=== PATIENT | male | born 1955 | race Caucasian/White ===

== ENCOUNTER 2017-01-24 09:37 | Day surgery (SDC) | payer BC ==
--- NOTE | 2017-01-24 10:33 | OR ---
Anesthesia Pre Procedure Eval Pre Procedure Evaluation: Last Vital Signs Temp 36.5 C 01/24/17 09:46 Pulse 88 01/24/17 09:46 Resp 16 01/24/17 09:46 BP 146/92 01/24/17 09:46 Pulse Ox 96 01/24/17 09:46 PRE PROCEDURE EVALUATION:: DATE: 01/24/2017 TIME: 10:30 INDICATIONS: Radicular low back pain. Bulging disc L5-S1. Spinal stenosis L5- S1. PAST MEDICAL HISTORY: Patient states he had cortisone injection in his back about 30 years ago. No recent epidural steroid injections. EXAM: Heart rate regular. Lungs clear. Patient complains of radicular low back pain. Pain is worse in his left hip and left leg. Procedure risks and benefits were explained to and accepted by the patient. ASSESSMENT OF MEDICAL STATUS: No contraindication to epidural injection. PLANNED PROCEDURE : Fluoroscopy guided epidural steroid injection at L5-S1. Home Medications: HOME MEDICATIONS oxyCODONE HCL/ACETAMINOPHEN [Percocet 5 MG/325 MG] 1 tab PO Q6H PRN 01/22/17 [ Last Taken Unknown]
[2017-01-24] MEDS ORDERED: IOPAMIDOL 20 ML VIAL IJ ONE (10:51)
[2017-01-24] MEDS ORDERED: DEXAMETHASONE SOD PHOSPHATE 10 MG/ML VIAL IJ ONE (10:51)
[2017-01-24] MEDS ORDERED: LIDOCAINE HCL/PF 5 ML VIAL IJ ONE (10:51)
--- NOTE | 2017-01-24 11:12 | OR ---
Anesthesia Procedure Note - Anesthesia Procedure Note Narrative: Vital Signs - Last Taken Temp 36.5 C 01/24/17 11:05 Pulse 82 01/24/17 11:05 Resp 16 01/24/17 11:05 BP 144/86 01/24/17 11:05 Pulse Ox 96 01/24/17 11:05 01/24/17 11:09 ANESTHESIA PROCEDURE NOTE Date of Procedure: 01/24/2017 Time of procedure: 1045. Performed by: Rafael Johnson CRNA Tar Roofer: None. Preprocedure diagnosis: Radicular low back pain. Spinal stenosis L5-S1. Bulging disc L5-S1. Post procedure diagnosis: Same. Procedure: Epidural Steroid Injection at L5-S1. Indications: Radicular low back pain. Findings: See below. Details of the procedure: The patient was brought back to operating room #4. The patient was then placed in the prone position. Back was prepped with DuraPrep. Patient was then draped in sterile fashion. Lidocaine 1% was infiltrated to the skin and subcutaneous tissues at the level of the L5-S1 interspace. The epidural space was identified using a 20-gauge Tuohy needle with [id number] technique and fluoroscopic guidance. A total of 3 mL of Isovue-200 contrast dye was injected in first the lateral and AP positions to confirm needle placement. Dexamethasone 10 mg + 5 mL of 1% preservative- free lidocaine was administered to the epidural space after negative aspiration for blood and CSF. The Tuohy needle was removed intact. A Band-Aid was applied to the patient's back. The patient was then placed in a supine position for 5 minutes before returning to the ambulatory surgical unit. Total fluoroscopy time 26.4 seconds. Total dose 13.33 m/gy. EBL: Minimal. Fluids: N/A. Specimen: N/A. Post procedure condition: The patient tolerated the procedure well. No complications were noted. Thank you for this consultation. Rafael Johnson CRNA
[2017-01-24 11:36] VITALS: BP 148/87
== END 2017-01-24 09:38 | disposition home or self-care (01) ==
LOC: AMB 09:37
PROVIDERS: ATTEND Family Medicine
PROC: 3E0S3BZ Introduction of Anesthetic Agent into Epidural Space, Percutaneous Approach (ICD-10-PCS; 2017-01-24)
PROC: 3E0S33Z Introduction of Anti-inflammatory into Epidural Space, Percutaneous Approach (ICD-10-PCS; principal; 2017-01-24 11:30)
DX: M51.27 Other intervertebral disc displacement, lumbosacral region (principal); M48.07 Spinal stenosis, lumbosacral region; Z68.32 Body mass index [BMI] 32.0-32.9, adult

== ENCOUNTER 2018-01-22 06:22 | Inpatient (IN) ==
[~2018-01-22 06:22] MED LIST: ceFAZolin SODIUM 1 GM VIAL IV PRN
--- NOTE | 2018-01-22 07:06 | ANES ---
Anesthesia Pre Procedure Eval Vitals/Labs: Last Vital Signs Temp 36.6 C 01/22/18 06:34 Pulse 86 01/22/18 06:34 Resp 168 H 01/22/18 06:34 BP 168/98 H 01/22/18 06:34 Pulse Ox 95 01/22/18 06:34 HOME MEDICATIONS NK 01/09/18 [Last Taken Unknown] Allergies/Adverse Reactions: Allergies Allergy/AdvReac Type Severity Reaction Status Date / Time No Known Allergies Allergy Verified 01/14/18 14:40 - Planned Procedure Planned Procedure: Left Total Shoulder vs. Left Reverse Total Shoulde Medication List Reviewed:: Yes Allergies Verified: Yes Medical History (Last Reviewed 01/22/18 @ 07:01 by Fran Toro CRNA) Chest pain Onset Date: ~2009 AC (acromioclavicular) arthritis Onset Date: 08/29/17 left Essential hypertension Onset Date: Unknown resolved, periods of hypertension Hemorrhoids Onset Date: Unknown Osteoarthrosis, localized, primary, shoulder region Onset Date: 08/29/17 left Pancreatitis Onset Date: 10/23/09 Dr. Yusuf Rectal bleeding Onset Date: 03/2010 BRB per rectum Restless leg syndrome Onset Date: Unknown TIA (transient ischemic attack) Onset Date: 10/23/09 Dr. Yusuf Surgical History (Last Reviewed 01/22/18 @ 07:02 by Fran Toro CRNA) History of shoulder replacement Right Clavicle fracture Onset Date: Unknown right side History of adenoidectomy Onset Date: Unknown History of carpal tunnel release Onset Date: 06/04/01 Dr. Edgar 04/23/2001 / Dr. John whitaker 06/04/2001 History of colonoscopy Onset Date: 03/23/10 Normal-Tingu[place] History of hemorrhoidectomy Onset Date: Unknown History of laminectomy Onset Date: 05/17/17 Laminectomy/decompression lumbar post, left and right l3 hemilaminectomy &L3- 4 partial facetectomy History of lung biopsy Onset Date: 2001 Benign-Joe History of repair of left rotator cuff Onset Date: Unknown History of repair of right rotator cuff Onset Date: 03/14/06 Dr. Tomlinson History of tonsillectomy Onset Date: Unknown Family History (Last Reviewed 01/22/18 @ 07:02 by Fran Toro CRNA) Mother Alzheimers disease, Onset Age: 80 age 80(2009) beginning Alzheimer's dementia, Cancer colon Father Alive and well Sister Alive and well Daughter Alive and well - Family Anesthesia History Family History:: no untoward family reactions to anesthesia, no familial bleeding tendencies, no family history of clotting disorders, no family history of premature - Airway/Neck/Teeth Within Normal Limits:: Yes Teeth Condition: Missing Teeth, Broken, Irregular Notching Neck Exam: non-tender, full range of motion Mallampatti Score: 2 Thyromental (T-M) distance: > 6 cm Mandibulo Hyoid distance: > 3 cm - Respiratory Respiratory: chest non-tender, lungs clear, decreased breath sounds Smoking Status: Never smoker Sleep Apnea currently treated: No Sleep Apnea by current assessment: No - Cardiovascular Patient History - Cardiac/Respiratory: Hypertension, TIA Tolerates Activity: Fair Heart Sounds: S1 & S2, Regular, Murmur - Anesthesia Assessment and Plan ASA Class: PS, III Anesthesia Type Plan: General LMA
[2018-01-22] MEDS: RINGER'S SOLUTION,LACTATED 1,000 ML IV PRN ×2 (07:09→10:15)
[2018-01-22] MEDS ORDERED: ceFAZolin SODIUM 1 GM VIAL IV PRN (08:46)
[2018-01-22] MEDS ORDERED: MAGNESIUM HYDROXIDE 30 ML UDC PO PRN (10:30)
[2018-01-22] MEDS ORDERED: oxyCODONE HCL/ACETAMINOPHEN 1 TAB TABLET PO PRN ×2 (10:30)
[2018-01-22] MEDS ORDERED: MAG HYDROX/ALUMINUM HYD/SIMETH 30 ML UDC PO PRN (10:30)
[2018-01-22] MEDS ORDERED: ONDANSETRON HCL/PF 2 MG/ML VIAL IV PRN (10:30)
[2018-01-22] MEDS ORDERED: ACETAMINOPHEN 500 MG TABLET PO PRN (10:30)
[2018-01-22] MEDS ORDERED: diphenhydrAMINE HCL 50 MG/ML VIAL IV PRN (10:30)
[2018-01-22] MEDS ORDERED: MORPHINE SULFATE 2 MG/ML DISP.SYRIN IV PRN (10:30)
--- NOTE | 2018-01-22 10:30 | OR ---
Operative Report - Dictated Report Narrative: Date: 01/22/2018 Physician: Lavell Swain M.D. Gis Software Engineer: Shayan Lopez PA-C Preoperative diagnosis: Left glenohumeral osteoarthritis Postoperative diagnosis: Left glenohumeral osteoarthritis Procedure: Left anatomic total shoulder arthroplasty Anesthesia: General plus regional Complications: None Estimated blood loss: 200 mL Specimens: Bone for disposal, cultures swab x1, frozen section x1 Retained implants: Depuy Global Unite size 12 standard stem, Global Unite anatomic proximal body size 12, Global Unite eccentric humeral head 52 mm x 18 mm, Global anchor peg glenoid size 52 mm Drains: None Indications: Kong Is a 62 year-old male who has been followed in my clinic with complaints of shoulder pain consistent with left glenohumeral arthritis. Physical exam and diagnostic imaging were consistent with his complaints and concern for gl enohumeral arthritis. MRI of the shoulder demonstrated a fluid collection of the subacromial space consistent with significant bursitis. There is no clinical concern for infection and I counseled the patient that we would culture this at the time of surgery and go ahead and send frozen sections to ensure there is no active infection. Conservative measures have failed including, but not limited to, passage of time, activity modification, medications, physical therapy/home exercise program, or injections. The risks, benefits, and alternatives were discussed in clinic. The risks being , bleeding, infection, blood clots, nerve, tendon, ligament, blood vessel injury, persistent pain, arthrosis, stiffness, need for prolonged therapy, implant failure/loosening, need for additional procedures, and persistent symptoms. Consent was obtained in the clinic. Procedure: After marking the correct extremity in the preoperative holding area, a timeout was performed in the operating room. IV antibiotics consisting of 2 g of Ancef were administered prior to the procedure. A general followed by regional anesthetic was induced by the nurse cook roast. This was in the supine position, then the patient was transitioned to a beachchair position with all bony prominences well-padded, head in neutral, the nonoperative arm well supported, and the legs padded with SCDs in place. The operative shoulder was then prepped and draped in a standard sterile fashion. Preoperatively the shoulder had slightly limited abduction and external rotation. After marking out the bony landmarks, an approximately 12 cm deltopectoral incision was marked out and incised with a sharp knife. A combination of blunt dissection and electrocautery was carried down through subcutaneous tissue to the level of the deltopectoral fascia. The fascial interval was developed with Metzenbaum scissors identifying the cephalic vein which was protected and retracted medially. Blunt finger dissection was used to develop the deltopectoral interval and the deltoid was retracted laterally while the pectoralis major and cephalic vein were retracted medially. This revealed the conjoined tendon and anterior aspect of the shoulder. We bluntly dissected into the subacromial space but did not encounter the expected fluid collection. It was determined that this fluid collection was within the deltoid muscle belly itself. Sharp knife was used to incise longitudinally into the deltoid between its fibers and immediately a large amount of serous fluid was encountered. This was cultured and the seroma was completely drained. There were no signs of purulence or gross infection. The bicipital groove was identified as well as the lesser tuberosity and we marked out our location for our subscapularis tenotomy. The subscapularis tendon was tagged with Vicryl suture and then sharply divided medial to its insertion point leaving a good cuff of tendon attached to the lesser tuberosity. Our incision was carried up through the rotator cuff interval to the level of the glenoid. The inferior aspect of the subscapularis as well as the inferior capsule was released taking care to protect the axillary nerve. The capsule was then released from the anterior and inferior aspects of the glenoid. At this point the arm was externally rotated and the shoulder dislocated delivering the humeral head up and out of the wound. The supraspinatus tendon was inspected and noted to be intact. At this point we identified our starting point for the humeral starting reamer centered over the intramedullary canal just onto the articular surface of the superior aspect of the humeral head. The entry reamer was advanced down the intramedullary canal of the humerus. Sequential hand reaming up to a 13 mm reamer was performed achieving good chatter cortical chatter. The reamer was left in place and then the humeral head cutting jig was attached. This was placed in approximately 30 of retroversion at the appropriate height based on the level of the greater tuberosity. This was then pinned into place and the reamer removed. The humeral head was then resected being careful to protect the supraspinatus inser tion. A rongeur was used to clean up some anterior inferior osteophyte. A protective metal cap was then placed over the cut end of the proximal humerus. Attention was then turned to the glenoid. A series of glenoid retractors were used to retract the humeral head posteriorly and inferior out of the way well as to retract the anterior soft tissue giving us 360 exposure of the glenoid. The biceps tendon was tenotomized at the bicipital anchor. The labrum was then removed in its entirety with a sharp knife. Soft tissue from the glenoid was sent for frozen section and came back with less than 5 neutrophils per high power field, not concerning for infection. The base of the coracoid was identified as well as the inferior/lateral border of the scapula and these were marked out to establish the bony anatomy of the glenoid. The glenoid was sized to a 52 mm component. The glenoid guide was then placed in the appropriate position in the center guide pin advanced into place. The glenoid was then reamed removing all cartilage and soft tissue being careful to preserve subchondral bone. The central peg drill was advanced down over our central pin and drilled. The drill guide for the peripheral pegs was then placed with one peg superiorly and two pegs inferiorly. These were sequentially drilled. The guide was then removed. The glenoid was then irrigated and thoroughly dried and bone cement was packed into the peripheral peg holes. A size 52 mm Global anchor peg glenoid was then impacted into place. Once the cement had adequately cured we turned our attention back to the humerus. A size 12 broach was advanced into the appropriate position once again and 30 of retroversion. A size 12 trial humeral stem was then impacted into place and we began trialing humeral heads. It was determined that a size 52 x 18 mm eccentric head with the eccentricity placed posteriorly and slightly superior gave us the best fit with good stability. Full passive range of motion was able to be obtained. The final 12 mm humeral component was then assembled on the back table and then impacted into its final position in the appropriate amount of retroversion. We then re-trialed our humeral head to confirm the appropriate size. The final humeral head was then impacted into place with the eccentric to the placed posteriorly and inferiorly. A final check demonstrated full passive range of motion with good stability. At this point the wound was copiously irrigated with normal saline. The subscapularis was repaired to the lesser tuberosity and remaining cuff of soft tissue with #2 Fiberwire in a horizontal mattress fashion and then oversewn with 1 Vicryl. 0 Vicryl was utilized in order to repair the delto-pectoral fascia. 3-0 Vicryl was placed in the subcutaneous tissue. Skin was closed with a running subcuticular 3-0 Monocryl. Dressings consisting of Prineo, 4 x 4, ABD, and tape were applied. The operative arm was then placed in a shoulder immobilizer. All sponge, needle, blade, and instrument counts were correct prior to closing the wounds. The patient was awoken and transferred to the postanesthesia care unit in stable condition.
--- NOTE | 2018-01-22 11:10 | ANES ---
Anesthesia Procedure Note Procedure Note: ANESTHESIA PROCEDURE NOTE Date of Procedure: 01/22/2018 Time of procedure: 7:40 AM. Performed by: Fran Toro CRNA, MSN Investigative Shopper: Rosa Garcia RN. Preprocedure diagnosis: Post total shoulder arthroplasty left. Post procedure diagnosis: Same. Procedure: Left Interscalene nerve block. Indications: Post left total shoulder arthroplasty pain relief. Findings: See below. Details of the procedure: The patient was brought to OR #4 and placed in semi- Fowlers position. The patient was prepped with chlorhexidine and using ultrasound guidance the left interscalene level of the brachial plexus was identified and lidocaine 1% was infiltrated to the skin of the intended injection site. Under ultrasound guidance the interscalene nerve bundles of the brachial plexus were approached with visualization of a 2 inch stimulator needle visualized unde ultrasound until a shoulder/arm response was identified on nerve stimulator. Once the stimulator response was effective at less than 0.5 mV and greater than 0.3 mV the brachial plexus nerves at this level were surrounded with 30 mL bupivacaine 0.25% with 1-200,000 epinephrine. Please see radiology/ultrasound report for details and retained images of the procedure. EBL: 0 Fluids: N/A. Specimen: N/A. Post procedure condition: The patient tolerated the procedure well. No complications were noted. Thank you for this consultation. Fran Toro CRNA, MSN
--- NOTE | 2018-01-22 11:10 | ANES ---
Post Anesthesia Discharge - Transfer of Care Transfer of Care handoff given to nurse: Yes - Discharge from PACU Discharge from PACU when meets criteria: Yes - Awake and comfortable
[2018-01-22] MEDS: NORMAL SALINE 1,000 ML IV PRN ×2 (11:54→20:48)
--- NOTE | 2018-01-22 12:49 | ANES ---
Post Anesthesia Assessment - Vital Signs Vitals: Last Vital Signs Temp 36.6 C 01/22/18 11:05 Pulse 86 01/22/18 11:30 Resp 12 01/22/18 11:30 BP 113/72 01/22/18 11:30 Pulse Ox 96 01/22/18 11:30 Airway Patency: Normal - Mental Status Level Of Consciousness: Awake, Alert, Appropriate - Pain Level Pain Score: 0 - N/V Assessment Nausea/Vomiting Presence: None Dehydration:: No
[2018-01-22] MEDS: ceFAZolin SODIUM 2 GM in DEXTROSE 5 % IN WATER 50 ML IV SCH ×4 (14:05→20:20)
[2018-01-22] MEDS ORDERED: SENNOSIDES/DOCUSATE SODIUM 1 TAB TABLET PO SCH (21:00)
[2018-01-23] MEDS: ceFAZolin SODIUM 2 GM in DEXTROSE 5 % IN WATER 50 ML IV SCH ×2 (02:14)
[2018-01-23] MEDS ORDERED: CLONIDINE HCL 0.1 MG TABLET PO ONE (02:15)
--- NOTE | 2018-01-23 08:41 | PN ---
Subjective - Date and Time Seen Date: 01/23/18 Time: 08:39 Subjective Narrative: No events overnight. Pain well controlled this am, no complaints. Objective - Vitals Vitals: Last Vital Signs Temp 36.6 C 01/23/18 06:56 Pulse 77 01/23/18 06:56 Resp 13 01/23/18 06:56 BP 137/91 H 01/23/18 06:56 Pulse Ox 98 01/23/18 06:56 - Exam Exam Narrative: Gen: A&Ox3, NAD Resp: breathing nonlabored MSK: LUE--> immobilizer in place, dressing c/d/i, appropriate swelling, 5/5 motor function distally in AIN/PIN/ulnar nerve distributions, SILT, distal cap refill brisk Assessment/Plan Plan Narrative: 62 yo M s/p L anatomic TSA, POD #1. - reg diet - oral pain meds - immobilizer at all times - dispo: plan for d/c home today
--- NOTE | 2018-01-23 08:54 | DS ---
Description of Stay: The patient was taken to the OR on 01/22/18 for left total shoulder arthroplasty. He tolerated the procedure well and there were no complications. He was admitted to the inpatient floor for observation postoperatively. There he remained stable with no complications. He resumed a normal diet, normal bladder and bowel function, pain was well controlled on oral pain medications, and the patient resumed his pre-operative level of mobility. He was deemed stable for discharge home on POD #1. Procedures Performed: see notes below List Procedures: Left anatomic total shoulder arthroplasty - 01/22/18 Results and Findings: Pending Mircobiology Results 01/22/18 08:43 Other - Left Surgical Culture - Preliminary No Growth Discharge Location: Home Disposition: Home self-care Condition: Good Discharge Activity: Non-Weight bearing - immobilizer at all times except for hygeine and ROM exercises Discharge Diet: General/regular food Referrals: Dangelo Andrea DO [Primary Care Provider] - Problem Oriented Discharge Instructions to Patient/Family: Shoulder Joint Replacement, Care After, How to Use a Shoulder Immobilizer Additional Patient Instructions (free text): Orthopedic Discharge Instructions: 1. NWB through left shoulder, immobilizer at all times except for hygeine and ROM exercises. 2. May remove gauze dressing tomorrow. Inspect dermabond dressing underneath to make sure it is not peeling up and there is no drainage. If it is intact, you may shower with it uncovered. Inspect it each day and call the clinic if there are any concerns. 3. Oral pain medication and stool softener ordered. 4. PT referral sent, to start as soon as you are able. Appointment for out patient therapy is scheduled on 01-24-18 at 4:00pm. 5. Follow up with Orthopedic Dr. Swain 02/11 at 1:00pm. Prescriptions (Any new or edited meds): RX: oxyCODONE HCL/ACETAMINOPHEN [Percocet 5 MG/325 MG] 1 - 2 tab PO Q4H PRN #75 tablet PRN Reason: Moderate Pain (Pain Scale 4-6) RX: Sennosides/Docusate Sodium [Senokot-S] 1 tab PO BID #40 tablet Complete Home Medications List: Complete Home Medication List: RX: Sennosides/Docusate Sodium [Senokot-S] 1 tab PO BID #40 tablet 01/23/18 RX: oxyCODONE HCL/ACETAMINOPHEN [Percocet 5 MG/325 MG] 1 - 2 tab PO Q4H PRN #75 tablet 01/23/18 Amb Orders for Discharge: PT Evaluation and Treatment* Facility: [facility], Location: Rehabilitation Services
[2018-01-23 09:46] VITALS: BP 158/46
== END 2018-01-23 10:29 | disposition home or self-care (01) | DRG 483 ==
LOC: MS 06:22
PROVIDERS: ADMIT Orthopaedic Surgery; ATTEND Orthopaedic Surgery
CPT/HCPCS: 73030; 87070; 88305; 88331; 97110; 97116; 97140; 97161; 97165; 97535